=== PATIENT | female | born 1950 | race Caucasian/White ===

== ENCOUNTER 2022-04-18 21:41 | Emergency (ER) | payer MEDICARE, MEDICAID, SELFPAY ==
[2022-04-18 21:43] VITALS: BP 155/121; PULSE 98; RESP 18; TEMP 35.5; O2SAT 97; BMI 39.6
[2022-04-18 22:07] VITALS: BP 148/72
--- NOTE | 2022-04-18 22:25 | EX.ED.DYSGE1 ---
HPI History of Present Illness Chief Complaint: Wound Check Informant: patient Narrative Narrative: Patient presents with increasing pain and redness to her right knee that started this morning and has slowly worsened. She has had subjective fevers at home. Highest temperature measured is 100. However, it sounds like she is likely on oxycodone with Tylenol. She states the pain was doing better and is now worsening. She has no trauma or fall on the knee. Most of her pain is on the lateral aspect and that is where most of the redness is. She has not gotten increased swelling of the leg. No chest pain or trouble breathing. Only anticoagulation is aspirin. Patient had surgery by Dr. Lencho Lee at [facility] on 06 April for total knee. Her next scheduled follow-up is on 23 April. She has not yet contacted him about these changes. Of note, patient has allergy to penicillin that does sound like anaphylaxis. However she has taken Keflex and tolerated that in the past. [facility] Medical History CPAP (continuous positive airway pressure) dependence Diabetes Former smoker Hyperlipidemia Hypertension Hypothyroidism Sleep apnea Home Medications amlodipine 10 mg tablet 10 mg PO DAILY 04/18/22 [History Last Taken Unknown] aspirin 325 mg tablet,delayed release 325 mg PO DAILY 04/18/22 [History Last Taken Unknown] empagliflozin 25 mg tablet (Jardiance) 25 mg PO DAILY 04/18/22 [History Last Taken Unknown] levothyroxine 150 mcg tablet (Synthroid) 150 mcg PO DAILY 04/18/22 [History Last Taken Unknown] pdckzv-dmdmthow-kkcipoz 36,000-114,000-180,000 unit capsule,delay rel (Creon) 1 cap PO TID 04/18/22 [History Last Taken Unknown] losartan 50 mg tablet (Cozaar) 50 mg PO DAILY 04/18/22 [History Last Taken Unknown] mesalamine 0.375 gram capsule,extended release 24 hr 0.375 g PO DAILY 04/18/22 [History Last Taken Unknown] methocarbamol 750 mg tablet 750 mg PO DAILY 04/18/22 [History Last Taken Unknown] metoprolol succinate 100 mg tablet,extended release 24 hr 100 mg PO DAILY 04/18/22 [History Last Taken Unknown] mirabegron 50 mg tablet,extended release 24 hr (Myrbetriq) 50 mg PO DAILY 04/18/22 [History Last Taken Unknown] rosuvastatin 10 mg tablet 10 mg PO DAILY 04/18/22 [History Last Taken Unknown] doxycycline monohydrate 100 mg capsule 100 mg PO BID #20 caps 04/19/22 [Rx Last Taken Unknown] Allergy/AdvReac Type Severity Reaction Status Date / Time Penicillins Allergy Anaphylaxis Verified 04/18/22 21:45 Surgical History History of appendectomy History of cholecystectomy History of spinal fusion History of total right knee replacement (TKR) Social History Smoking Status: Former smoker ROS ROS ED Constitutional Constitutional ED: Reports chills, fever(s) and subjective Eyes Eyes: Denies blurry vision ENT ENT ED: Denies rhinorrhea or sore throat Cardiovascular Cardiovascular: Denies chest pain, palpitations or racing heartbeat Respiratory/Chest Respiratory/Chest: Denies cough or dyspnea Gastrointestinal Gastrointestinal: Denies nausea or vomiting Genitourinary Genitourinary ED: Denies dysuria or urinary frequency Musculoskeletal Musculoskeletal: Reports other Details: Pain in right knee as in history of present illness peer Integumentary Reports rash and other Details: Increased erythema of the anterior lateral aspect of the right knee. Neurologic Neurologic: Denies headache(s) Hematologic/Lymphatic Hematologic/Lymphatic: Denies easy bleeding or easy bruising Allergic/Immunologic Allergic/Immunologic ED: Denies urticaria EXAM Physical Exam Const Vital Signs: 04/18/22 21:43 04/18/22 22:07 Temperature 96 F L Temperature Source Temporal Pulse Rate 98 Respiratory Rate 18 Blood Pressure 155/121 H 148/72 H Blood Pressure Mean 132 97 Pulse Ox 97 Oxygen Delivery Method Room Air Positive well nourished and well developed General Appearance ED: well developed; Negative for diaphoretic HEENT Reports moist mucous membranes Eyes General Eye ED: Negative for scleral icterus Neck no JVD Chest Wall inspection of chest normal Resp normal respiratory effort and clear to auscultation bilaterally Auscultation: Negative for rales, rhonchi or wheezes Cardio regular rate and regular rhythm GI normal to inspection, nondistended, normoactive bowel sounds and non-tender Back/Spine no CVA tenderness Extremity Extremity Narrative: There is an overall well-healing incision. But the lower portion and toward the right side is definitely developed erythema but the other areas do not have. This area is also warm. Her calf and lower leg has some bruising but its not tender. I feel no cord. This seems to be all erythema in the inferior lateral aspect of the incision. Neuro Sensorium / Orientation: alert Psych mental status grossly normal Skin Skin Narrative: See above extremity exam MDM MDM MDM Narrative Medical decision making narrative: Patient's CBC shows a normal white count just at the higher end. Hemoglobin is normal. Platelets are normal. Electrolytes show no marked abnormalities. Glucose was minimally up at 136 showing overall good control. Lactate was normal. C-reactive protein and ESR were elevated. X-ray did not show any acute process. I discussed the case with her surgeon, Dr. Lee. He he recommended IV dose of antibiotics which has been given here. Start doxycycline twice a day. She will call the office in the morning and they will get her in for recheck. I will write for outpatient ultrasound. Although clinically I do not think this represents a DVT it would be nice to rule this out. I do not have that capability here tonight. I do not think she needs justifies full anticoagulation pending that. Lab Data Attestation: I reviewed the patient's lab results. Labs: Laboratory Results - last 24 hr 04/18/22 04/18/22 04/18/22 23:11 23:11 23:11 WBC 10.9 RBC 3.95 L Hgb 12.2 Hct 37.5 MCV 94.9 MCH 30.9 MCHC 32.5 RDW Std Deviation 44.2 H RDW Coeff of Lizeth 12.8 Plt Count 373 MPV 8.5 Immature Gran % (Auto) 0.800 Neut % (Auto) 69.3 Lymph % (Auto) 21.3 [place] % (Auto) 5.6 Eos % (Auto) 2.1 Baso % (Auto) 0.9 Absolute Neuts (auto) 7.6 Absolute Lymphs (auto) 2.33 Nucleated RBC % 0 ESR 60 H Sodium 139 Potassium 4.0 Chloride 106 Carbon Dioxide 27.0 Anion Gap 6 BUN 20 H Creatinine 0.76 Estim Creat Clear Calc 40.81 Est GFR (MDRD) Af Amer 97 Est GFR (MDRD) Non-Af 80 BUN/Creatinine Ratio 26.3 H Glucose 136 H Lactic Acid 0.6 Calcium 9.4 C-React Prot Ext Range 25.00 H Discharge Plan Triage Chief Complaint: Wound Check ED Provider: Meño Joe Dx/Rx/DC Orders Clinical Impression: Postoperative wound infection Instructions: ED Wound Check (Infection) Prescriptions: New doxycycline monohydrate 100 mg capsule 100 mg PO BID Qty: 20 0RF No Action losartan [Cozaar] 50 mg tablet 50 mg PO DAILY metoprolol succinate 100 mg tablet extended release 24 hr 100 mg PO DAILY methocarbamol 750 mg tablet 750 mg PO DAILY aspirin 325 mg tablet,delayed release (DR/EC) 325 mg PO DAILY Label Comments: TAKE ONE TABLET BY MOUTH TWICE DAILY amlodipine 10 mg tablet 10 mg PO DAILY levothyroxine [Synthroid] 150 mcg tablet 150 mcg PO DAILY rosuvastatin 10 mg tablet 10 mg PO DAILY mesalamine 0.375 gram capsule,extended release 24hr 0.375 g PO DAILY Myrbetriq 50 mg tablet extended release 24 hr 50 mg PO DAILY Creon 36,000-114,000- 180,000 unit capsule,delayed release(DR/EC) 1 cap PO TID Jardiance 25 mg tablet 25 mg PO DAILY Primary Care Provider: MARIIA FERNANDEZ Activity Restrictions/Additional Instructions: Call Dr. Lee's office in the morning for close follow-up. Disposition Disposition: Home, Self Care
[2022-04-18] MEDS: Ondansetron 4 MG/2 ML Vial IV (23:26)
[2022-04-18] MEDS: Morphine 4 MG/ML Syringe IV (23:26)
[2022-04-18 23:31] LABS: Absolute Lymphocyte Count 2.33 X10^3/uL (0.83-4.51); Absolute Neutrophil Count 7.6 X10^3/uL (2.0-7.7); Basophil% 0.9 % (0-1); Eosinophil# 0.23 X10^3/uL; Eosinophils% 2.1 % (0-5); Hematocrit 37.5 % (37-47); Hemoglobin 12.2 g/dL (12.0-15.0); Lymphocyte # 2.33 X10^3/ul (0.83-4.51); Lymphocyte % 21.3 % (19-41); Mean Corp Hgb Conc 32.5 g/dL (32-36); Mean Corpuscular Hgb 30.9 pg (27.0-32.0); Mean Corpuscular Volume 94.9 fL (81-99); Mean Platelet Vol. 8.5 fl (6.2-12.0); Monocyte# 0.61 X10^3/uL; Monocyte% 5.6 % (0-10); NRBC Flagged by Analyzer 0 % (0-5); Neutrophil # 7.58 X10^3/uL (2.7-7.7); Neutrophil % 69.3 % (47-70); Platelet Count 373 K/mm3 (150-450); RBC Distribution Width CV 12.8 % (11.6-14.6); RBC Distribution Width SD 44.2 fl (35.1-43.9); Red Blood Count 3.95 M/mm3 (4.2-5.4); White Blood Count 10.9 K/mm3 (4.4-11.0)
[2022-04-18 23:36] LABS: Anion Gap 6 (5-15); BUN 20 mg/dL (7-18); BUN/Creat Ratio 26.3 RATIO (10-20); Calcium,Total 9.4 mg/dL (8.5-10.1); Chloride 106 mmol/L (98-107); Creatinine, Serum 0.76 mg/dL (0.55-1.02); EST Glomerular Filtration Rate 80 mL/min (>60); Est Glom Filt Rate - Afr Amer 97 mL/min (>60); Estimated Creatinine Clearance 40.81 ml/min; Glucose 136 mg/dL (74-106); Sodium Level 139 mmol/L (136-145)
[2022-04-18 23:46] LABS: Lactic Acid 0.6 mmol/L (0.4-1.9)
[2022-04-18 23:52] LABS: Erythrocyte Sedimentation Rate 60 mm/hr (0-30)
--- NOTE | 2022-04-18 23:55 | RAD_ITS ---
EXAM: XR RIGHT KNEE, 3 VIEWS CLINICAL INDICATION: postoperative pain TECHNIQUE: Three views of the right knee. This report was created using [employer] report generation technology. COMPARISON: None. FINDINGS: BONES/JOINTS: Right total knee arthroplasty with satisfactory alignment and no hardware complications. No acute or healing fracture. No unusual lytic or sclerotic lesions of bone. Moderate suprapatellar joint effusion. Small suprapatellar enthesophyte. SOFT TISSUES: Unremarkable. No soft tissue swelling or gas. No radiopaque foreign body. RAD/Knee 4 or More Views IMPRESSION: 1. No acute or healing fracture or malalignment. 2. No hardware complications. 3. Small to moderate joint effusion. Electronically Signed: Juan Engle MD at 0:37 EDT ,
[2022-04-19 00:46] VITALS: BP 115/60; PULSE 71; RESP 16; O2SAT 93
== END 2022-04-19 02:15 | disposition home or self-care (01) ==
PROVIDERS: Emergency Provider Emergency Medicine; Visit Provider Emergency Medicine
DX: T81.41XA Infection following a procedure, superficial incisional surgical site, initial encounter (principal); E11.9 Type 2 diabetes mellitus without complications; X58.XXXA Exposure to other specified factors, initial encounter; I10 Essential (primary) hypertension; E78.5 Hyperlipidemia, unspecified; Z96.651 Presence of right artificial knee joint; Z79.82 Long term (current) use of aspirin; Z79.84 Long term (current) use of oral hypoglycemic drugs; Z79.899 Other long term (current) drug therapy; Z87.891 Personal history of nicotine dependence
CPT/HCPCS: 73564; 80048; 83605; 85025; 85652; 86140; 87040; 96365; 96366; 96375; 99284; J7040; A4216; J2405

== ENCOUNTER → 2022-04-19 | Outpatient (CLI) | payer MEDICARE, MEDICAID, SELFPAY ==
--- NOTE | 2022-04-19 13:46 | VDLE_ITS ---
Reason For Study: RLE PAIN RIGHT GSV is normal. CFV is compressible, spontaneous, phasic, competent and demonstrates normal augmentation. FV is compressible, spontaneous, phasic, competent and demonstrates normal augmentation. POP V is compressible, spontaneous, phasic, competent and demonstrates normal augmentation. T/P Trunk is compressible. PTV is compressible. RT PerV is compressible. Procedure This is a venous duplex using B-mode, color flow and spectral Doppler. Exam performed in department. The exam was diagnostic. VL/Venous Duplex US, Unilateral Interpretation Summary Deep veins of the right lower extremity are patent and compressible segmentally . There is no evidence of right lower extremity deep vein thrombosis. Valvular competence vicky ears intact within the proximal deep venous system on the right . The right great saphenous vein a ppears patent and compressible segmentally. Ordering Physician: Meño Joe Referring Physician: OTD Performed By: Sabine Garduno, ANNA, RVT
== END | disposition home or self-care (01) ==
LOC: CVS 13:44
PROVIDERS: Visit Provider Emergency Medicine
DX: M79.604 Pain in right leg (principal)
CPT/HCPCS: 93971